=== PATIENT | male | born 1970 | race Caucasian/White ===

== ENCOUNTER → 2016-12-03 | Outpatient (CLI) | payer OTHER ==
--- NOTE | 2016-12-04 11:26 | REP ---
NUCLEAR THYROID UPTAKE AND SCAN: Following the oral administration of 439 microcuries of Iodine-123 of sodium iodine, thyroid uptake is measured. The 2 hour uptake is 12.1% which is within normal limits and a 24 hour uptake is 29.9% which is within normal limits. Thyroid scan shows enlargement of the right lobe with a length of approximately 7 cm. Length of the left lobe is between 5 and 6 cm. There is mildly heterogeneous uptake in the right lobe. However, I do not see a discrete hot or cold nodule bilaterally. IMPRESSION: Enlargement of the right lobe of the thyroid. Normal uptake. No discrete focal hot or cold nodule. Signed by Robert Blackwell MD 12/05/2016 04:25 P
== END ==
LOC: M RAD 09:52
PROVIDERS: ATTEND Nurse Practitioner Family
DX: E05.90 Thyrotoxicosis, unspecified without thyrotoxic crisis or storm (principal)
CPT/HCPCS: 78014; A9516

== ENCOUNTER → 2017-01-07 | Outpatient (CLI) | payer OTHER ==
[2017-01-07 12:38] LABS: FREE T4 1.68 NG/DL (0.76-1.46)
== END ==
LOC: M LAB 11:13
PROVIDERS: ATTEND Nurse Practitioner Family
DX: E05.00 Thyrotoxicosis with diffuse goiter without thyrotoxic crisis or storm (principal)

== ENCOUNTER → 2017-02-26 | Outpatient (CLI) | payer OTHER | LOC: M RAD 11:16 | DX: E05.00 Thyrotoxicosis with diffuse goiter without thyrotoxic crisis or storm (principal) | CPT/HCPCS: A9517 ==

== ENCOUNTER → 2017-04-19 | Outpatient (CLI) | payer OTHER ==
[2017-04-19 11:59] LABS: THYROID STIMULATING HORMONE 0.317 uIU/ML (0.358-3.740)
[2017-04-19 12:20] LABS: FREE T4 0.66 NG/DL (0.76-1.46)
== END ==
LOC: M LAB 10:41
DX: E05.00 Thyrotoxicosis with diffuse goiter without thyrotoxic crisis or storm (principal)

== ENCOUNTER → 2017-05-09 | Outpatient (CLI) | payer OTHER ==
[2017-05-09 12:44] LABS: FREE T4 0.26 NG/DL (0.76-1.46)
== END ==
LOC: M LAB 11:25
DX: E05.00 Thyrotoxicosis with diffuse goiter without thyrotoxic crisis or storm (principal)

== ENCOUNTER → 2017-06-26 | Outpatient (CLI) | payer OTHER ==
[~2017-06-26] MED LIST: ISOVUE-370 76% 100ML VIAL (Q9967) As Ordered
== END ==
LOC: M RAD 15:08
DX: I51.7 Cardiomegaly (principal)
CPT/HCPCS: Q9967

== ENCOUNTER → 2017-07-29 | Outpatient (CLI) | payer OTHER ==
[2017-07-29 16:09] LABS: FREE T4 1.19 NG/DL (0.76-1.46)
== END ==
LOC: M LAB 15:19
DX: E89.0 Postprocedural hypothyroidism (principal)

== ENCOUNTER → 2017-10-21 | Outpatient (CLI) | payer OTHER ==
[2017-10-21 14:43] LABS: FREE T4 1.37 NG/DL (0.76-1.46)
== END ==
LOC: M LAB 10:00
DX: E89.0 Postprocedural hypothyroidism (principal)
CPT/HCPCS: 84443

== ENCOUNTER → 2017-12-25 | Outpatient (CLI) | payer OTHER | LOC: M LAB 09:50 | DX: E89.0 Postprocedural hypothyroidism (principal) | CPT/HCPCS: 84443 ==

== ENCOUNTER → 2018-04-29 | Outpatient (CLI) | payer OTHER ==
[2018-04-29 13:11] LABS: FREE T4 1.38 NG/DL (0.76-1.46); THYROID STIMULATING HORMONE 1.44 uIU/ML (0.358-3.740)
== END ==
LOC: M LAB 10:33
PROVIDERS: ATTEND Nurse Practitioner Family
DX: E89.0 Postprocedural hypothyroidism (principal)

== ENCOUNTER → 2019-01-22 | Outpatient (CLI) | payer OTHER ==
[2019-01-22 14:59] LABS: FREE T4 1.38 NG/DL (0.76-1.46); THYROID STIMULATING HORMONE 0.898 uIU/ML (0.358-3.740)
== END ==
LOC: M LAB 13:37
PROVIDERS: ATTEND Nurse Practitioner Family
DX: E09.00 Drug or chemical induced diabetes mellitus with hyperosmolarity without nonketotic hyperglycemic-hyperosmolar coma (NKHHC) (principal)

== ENCOUNTER → 2019-06-08 | Outpatient (CLI) | payer OTHER | LOC: M SLEEP HO 09:39 | PROVIDERS: ATTEND Internal Medicine Cardiovascular Disease | DX: R40.0 Somnolence (principal) ==

== ENCOUNTER → 2019-08-04 | Outpatient (CLI) | payer OTHER ==
[2019-08-04 10:38] LABS: FREE T4 1.47 NG/DL (0.76-1.46); THYROID STIMULATING HORMONE 3.28 uIU/ML (0.358-3.740)
== END ==
LOC: M LAB 09:11
PROVIDERS: ATTEND Nurse Practitioner Family
DX: E89.0 Postprocedural hypothyroidism (principal)